=== PATIENT | male | born 1945 | race Caucasian/White ===

== ENCOUNTER 2018-09-01 09:45 | Inpatient (IN) ==
[2018-09-01] MEDS ORDERED: Metoprolol Inj 5 MG/5 ML Vial IV.PUSH ONE ×2 (10:14→12:17)
[2018-09-01] MEDS ORDERED: Pantoprazole Inj 40 MG Vial IV.PUSH ONE (10:14)
--- NOTE | 2018-09-01 10:20 | ED ---
HPI General Chief complaint: GI Bleed Stated complaint: Poss GI Bleed Time Seen by Provider: 09/01/18 10:05 Source: patient Mode of arrival: ambulatory Limitations: no limitations History of Present Illness HPI Narrative: The patient is a 73-year-old male who presents to the emergency department for melena. The patient states he has had dark, black colored stool for the last day and a half. The patient saw his primary physician, Dr. Bk Villasenor, who referred him to the emergency department. The patient does have a history of atrial fibrillation for which he takes Coumadin. The patient denies any previous history of GI bleeds including ulcers, gastritis, and polyps. The patient denies any current nausea, vomiting, or abdominal pain. He does complain of mild lightheadedness and does note his heart rate is elevated. The patient does have a history of atrial fibrillation and takes Coumadin, he is followed by his industrial engineering, Dr. Mckeon. The patient denies any chest pain or shortness of breath. Symptoms are moderate. There are no current alleviating factors. The patient symptoms possibly could be exacerbated by warfarin use. MD complaint: Reports melena Onset (ago): day(s) Pain Consistency: constant Severity: moderate Relieving factors: none Exacerbating factors: none Context: Reports anticoagulant use Associated symptoms: Reports other Treatments Prior to Arrival: Reports none Related Data Home Medications Medication Instructions Recorded Confirmed atorvastatin 20 mg PO QPM 09/01/18 09/01/18 carvedilol [Coreg] 25 mg PO BID 09/01/18 09/01/18 digoxin [Lanoxin] 0.125 mg PO DAILY 09/01/18 09/01/18 hydrochlorothiazide 12.5 mg PO QAM 09/01/18 09/01/18 levothyroxine 50 mcg PO DAILY 09/01/18 09/01/18 warfarin [Coumadin] 3 mg PO QNOON 09/01/18 09/01/18 Allergies Allergy/AdvReac Type Severity Reaction Status Date / Time No Known Allergies Allergy Uncoded 11/15/15 12:20 Review of Systems ROS: all other systems reviewed are negative [facility] Medical History Medical History Arrhythmia (Acute) Atrial fibrillation (Acute) Surgical History Surgical History Previous back surgery (Acute) Social History Social History Substance History: No History of Abuse Smoking Status: Unknown if ever smoked How Often Do You Have a Drink Containing Alcohol: 4 or more times a week Recent Travel in [facility] within the Last 8 Weeks: No Recent Out of Country Travel within the Last 8 Weeks: No Exam Narrative Exam Narrative: GENERAL: Awake, alert, pleasant 73-year-old male who appears his stated age and is in no acute respiratory distress. SKIN: Focused skin assessment warm/dry. HEAD: Atraumatic. Normocephalic. EYES: Pupils equal and round. No scleral icterus. No injection or drainage. ENT: No nasal bleeding or discharge. Mucous membranes pink and moist. NECK: Trachea midline. No JVD. CARDIOVASCULAR: Irregularly irregular, tachycardic with a heart rate in the 130s. RESPIRATORY: No accessory muscle use. Clear to auscultation. Breath sounds equal bilaterally. GASTROINTESTINAL: Abdomen soft, obese, no rebound tenderness. Rectal: No gross blood, black stool which is grossly guaiac positive. MUSCULOSKELETAL: No obvious deformities. No clubbing. No cyanosis. No edema. NEUROLOGICAL: Awake and alert. No obvious cranial nerve deficits. Motor grossly within normal limits. Normal speech. PSYCHIATRIC: Appropriate mood and affect; insight and judgment normal. Procedures Hemaprompt Stool Procedural Steps Taken: specimen placed in appropriate test area, developer placed on specimen and control areas and controls appropriately positive and negative Hemaprompt Stool Result: positive Course Initial Documented Vital Signs Temperature 98.4 F 09/01/18 09:55 Pulse Rate 125 H 09/01/18 09:55 Respiratory Rate 18 09/01/18 09:55 Blood Pressure 200/99 H 09/01/18 09:55 Pulse Oximetry 97 09/01/18 09:55 Last Documented Vital Signs Temperature 98.4 F 09/01/18 09:55 Pulse Rate 117 H 09/01/18 11:10 Respiratory Rate 18 09/01/18 11:10 Blood Pressure 164/95 H 09/01/18 11:10 Pulse Oximetry 98 09/01/18 11:10 Medical Decision Making [facility] Narrative Medical decision making narrative: IV was established, labs are drawn and sent, and the patient was placed on cardiac telemetry monitoring and continuous pulse oximetry monitoring. EKG was ordered and interpreted. Rectal exam was performed, black stool which is grossly guaiac positive. Type and screen and PT /INR were sent to lab. The patient was noted to be in atrial fibrillation with RVR, therefore, was administered Lopressor 5 mg intravenously. The patient's hemoglobin was normal, BUN was elevated greater than 40 with normal creatinine, most likely prerenal azotemia from upper GI bleed. INR was 2.0. The patient was administered Protonix intravenously and a second dose of Lopressor 5 mg for atrial fibrillation with RVR. The patient appears to have an upper GI bleed, on Coumadin, with lightheadedness and dizziness. Therefore, patient will be admitted for serial CBC, Protonix, and possible evaluation by GI. Patient may benefit from upper endoscopy. I discussed the patient with the on-call medical service who agrees with admission. Medical Screen Exam Complete: Yes Emergency Medical Condition: Yes Differential Diagnosis Differential Diagnosis: Differential diagnosis includes upper GI bleed, lower GI bleed, peptic ulcer disease, gastritis, coagulopathy, Coumadin toxicity, symptomatic anemia, atrial fibrillation with RVR, dysrhythmia, acute kidney injury, azotemia. Lab Data Result diagrams: 09/01/18 10:20 09/01/18 10:20 Lab Results 09/01/18 09/01/18 09/01/18 Range/Units 10:20 10:20 10:20 WBC 16.0 H (4.0-11.0) th/mm3 RBC 4.01 L (4.50-5.90) mil/mm3 Hgb 13.6 (13.0-17.0) gm/dL Hct 40.6 (39.0-51.0) % MCV 101.1 H (80.0-100.0) fL MCH 34.0 (27.0-34.0) pg MCHC 33.6 (32.0-36.0) % RDW 14.0 (11.6-17.2) % Plt Count 242 (150-450) th/mm3 MPV 7.3 (7.0-11.0) fL Prelim Diff (Auto) Slide review pending Neut % (Auto) 42.8 (16.0-70.0) % Lymph % (Auto) 43.7 (9.0-44.0) % [place] % (Auto) 10.4 H (0.0-8.0) % Eos % (Auto) 2.6 (0.0-4.0) % Baso % (Auto) 0.5 (0.0-2.0) % Neut # (Auto) 6.8 (1.8-7.7) th/mm3 Lymph # (Auto) 7.0 H (1.0-4.8) th/mm3 [place] # (Auto) 1.7 H (0.0-0.9) th/mm3 Eos # (Auto) 0.4 (0.0-0.4) th/mm3 Baso # (Auto) 0.1 (0.0-0.2) th/mm3 WBC Differential Manual diff final Seg Neuts % (Manual) 52 (16-70) % Lymphocytes % (Manual) 39 (9-44) % Monocytes % (Manual) 6 (0-8) % Eosinophils % (Manual) 3 (0-4) % Abs Neuts (Manual) 8.3 H (1.8-7.7) th/mm3 Differential Comment . Platelet Estimate Normal (Normal) Platelet Morphology Normal (Normal) PT 20.1 H (9.8-11.6) sec INR 2.0 Ratio APTT 33.3 H (23.4-31.7) sec Sodium 139 (136-145) meq/L Potassium 3.9 (3.5-5.1) meq/L Chloride 106 (98-107) meq/L Carbon Dioxide 23.2 (21.0-32.0) meq/L Anion Gap 10 (5-15) meq/L BUN 44 H (7-18) mg/dL Creatinine 1.23 (0.60-1.30) mg/dL Estimated GFR 58 L (>89) mL/min Random Glucose 147 H (74-106) mg/dL Calcium 8.9 (8.5-10.1) mg/dL Magnesium 1.9 (1.5-2.5) mg/dL Total Bilirubin 2.4 H (0.2-1.0) mg/dL AST 56 H (15-37) U/L ALT 45 (12-78) U/L Alkaline Phosphatase 149 H (45-117) U/L Total Protein 7.1 (6.4-8.2) g/dL Albumin 3.1 L (3.4-5.0) g/dL Digoxin 0.5 L (0.8-2.0) ng/mL Blood Type Blood Type Recheck Antibody Screen 09/01/18 Range/Units 10:20 WBC (4.0-11.0) th/mm3 RBC (4.50-5.90) mil/mm3 Hgb (13.0-17.0) gm/dL Hct (39.0-51.0) % MCV (80.0-100.0) fL MCH (27.0-34.0) pg MCHC (32.0-36.0) % RDW (11.6-17.2) % Plt Count (150-450) th/mm3 MPV (7.0-11.0) fL Prelim Diff (Auto) Neut % (Auto) (16.0-70.0) % Lymph % (Auto) (9.0-44.0) % [place] % (Auto) (0.0-8.0) % Eos % (Auto) (0.0-4.0) % Baso % (Auto) (0.0-2.0) % Neut # (Auto) (1.8-7.7) th/mm3 Lymph # (Auto) (1.0-4.8) th/mm3 [place] # (Auto) (0.0-0.9) th/mm3 Eos # (Auto) (0.0-0.4) th/mm3 Baso # (Auto) (0.0-0.2) th/mm3 WBC Differential Seg Neuts % (Manual) (16-70) % Lymphocytes % (Manual) (9-44) % Monocytes % (Manual) (0-8) % Eosinophils % (Manual) (0-4) % Abs Neuts (Manual) (1.8-7.7) th/mm3 Differential Comment Platelet Estimate (Normal) Platelet Morphology (Normal) PT (9.8-11.6) sec INR Ratio APTT (23.4-31.7) sec Sodium (136-145) meq/L Potassium (3.5-5.1) meq/L Chloride (98-107) meq/L Carbon Dioxide (21.0-32.0) meq/L Anion Gap (5-15) meq/L BUN (7-18) mg/dL Creatinine (0.60-1.30) mg/dL Estimated GFR (>89) mL/min Random Glucose (74-106) mg/dL Calcium (8.5-10.1) mg/dL Magnesium (1.5-2.5) mg/dL Total Bilirubin (0.2-1.0) mg/dL AST (15-37) U/L ALT (12-78) U/L Alkaline Phosphatase (45-117) U/L Total Protein (6.4-8.2) g/dL Albumin (3.4-5.0) g/dL Digoxin (0.8-2.0) ng/mL Blood Type O Positive Blood Type Recheck Required Antibody Screen Negative ECG Data EKG Prior to Arrival: No Attestation: I personally reviewed and interpreted this ECG as follows: Interpretation: EKG reveals atrial fibrillation with RVR, rate 114. Nonspecific ST-T wave changes. Discharge Plan Discharge Disposition Patient Disposition: ED Admit(ED Internal Use Only) Discharge Condition Condition: Stable Discharge Order Discharge Orders: ED Use Only Admit Order (Routine); Ordered 09/01/18 Ordered By: Jostin Graham Discharge Details Diagnosis: Upper gastrointestinal hemorrhage, Atrial fibrillation with RVR, Coagulopathy Physicians Team ED Provider: Jostin Graham Primary Care Provider: Bk Villasenor Rxs /Orders / Referrals /Forms Prescriptions: No Action carvedilol [Coreg] 25 mg Tablet 25 mg PO BID RF: 0 atorvastatin 20 mg Tablet 20 mg PO QPM RF: 0 warfarin [Coumadin] 3 mg Tablet 3 mg PO QNOON RF: 0 levothyroxine 50 mcg Tablet 50 mcg PO DAILY RF: 0 digoxin [Lanoxin] 125 mcg Tablet 0.125 mg PO DAILY RF: 0 hydrochlorothiazide 12.5 mg Tablet 12.5 mg PO QAM RF: 0 Discharge Interventions Interventions: Vital Signs Last Done: 09/01/18 11:10 Status ED Status: Admitted Patient
[2018-09-01] MEDS: Sod Chloride 0.9% Inj 1,000 ML IV.CONT SCH ×3 (10:30→18:52)
[2018-09-01 11:08] LABS: Baso # (Auto) 0.1 th/mm3 (0.0-0.2); Baso % (Auto) 0.5 % (0.0-2.0); Eos # (Auto) 0.4 th/mm3 (0.0-0.4); Eos % (Auto) 2.6 % (0.0-4.0); Hematocrit 40.6 % (39.0-51.0); Hemoglobin 13.6 gm/dL (13.0-17.0); Lymph % (Auto) 43.7 % (9.0-44.0); Mean Corpuscular HGB Conc 33.6 % (32.0-36.0); Mean Corpuscular Volume 101.1 fL (80.0-100.0); Mean Platelet Volume 7.3 fL (7.0-11.0); Mono # (Auto) 1.7 th/mm3 (0.0-0.9); Mono % (Auto) 10.4 % (0.0-8.0); Neut # (Auto) 6.8 th/mm3 (1.8-7.7); Neut % (Auto) 42.8 % (16.0-70.0); Platelet Count 242 th/mm3 (150-450); Red Blood Count 4.01 mil/mm3 (4.50-5.90)
[2018-09-01 11:17] LABS: Activated Partial Thrombo Time 33.3 sec (23.4-31.7); Prothrombin Time 20.1 sec (9.8-11.6)
[2018-09-01 11:27] LABS: Alanine Aminotransferase 45 U/L (12-78)
[2018-09-01 11:40] LABS: Eosinophils 3 % (0-4); Lymphocytes 39 % (9-44); Monocytes 6 % (0-8); Platelet Estimate Normal (Normal); Platelet Morphology Normal (Normal)
[2018-09-01 11:41] LABS: Alkaline Phosphatase 149 U/L (45-117); Digoxin 0.5 ng/mL (0.8-2.0); Total Protein 7.1 g/dL (6.4-8.2)
[2018-09-01 11:44] LABS: Albumin 3.1 g/dL (3.4-5.0); Anion Gap 10 meq/L (5-15); Aspartate Aminotransferase 56 U/L (15-37); Blood Urea Nitrogen 44 mg/dL (7-18); Calcium 8.9 mg/dL (8.5-10.1); Carbon Dioxide 23.2 meq/L (21.0-32.0); Chloride 106 meq/L (98-107); Glomerular Filtration Rate 58 mL/min (>89); Glucose,Random 147 mg/dL (74-106); Magnesium 1.9 mg/dL (1.5-2.5); Potassium 3.9 meq/L (3.5-5.1); Sodium 139 meq/L (136-145)
--- NOTE | 2018-09-01 13:23 | P.HPIM ---
History of Present Illness Primary Care Physician: Bk Villasenor DO History of Present Illness: This patient is a 73-year-old male with a diagnosis of hypertension, atrial fibrillation on Coumadin, history of gastric bypass surgery as per the patient. The patient was seen by his primary care doctor a few days ago and was found to have an elevated INR of 5.4 this past . He was told to skip 2 days of Coumadin however over the weekend the patient began to have black stools. He said his stools have continued over the past 3 days and this is why he came into the emergency department today. The patient denies any abdominal pain, no fevers or chills, no vomiting. He does not have any other complaints today. Past medical history hypertension, atrial fibrillation on Coumadin Past surgical history patient says he got a piece of metal removed from his left side of his leg, gastric bypass. Family history none as per the patient Social history the patient denies any history of tobacco smoking, he says he drinks approximately 2 drinks of vodka per day that has been ongoing for nearly 20 years. Denies any history of substance abuse. Inpatient Certification: I certify that the inpatient services were ordered in accordance with Medicare regulations governing the order. This includes certification that hospital inpatient services are reasonable and necessary and in the case of services not specified as inpatient-only under 42 CFR 419.22(n), that they are appropriately provided as inpatient services in accordance to with the 2-midnight benchmark under 43 CFR 412.3(e) Estimated Total Length of Stay (Days): 3 Plans for Post Hospital Care: Home Review of Systems All other systems reviewed negative except as stated in HPI [facility] - History History Provided By: Patient - Medical History Medical History: Medical History (Last Updated 09/01/18 @ 10:22 by Abigail Syed) Arrhythmia Atrial fibrillation - Surgical History Surgical History: Surgical History (Last Updated 09/01/18 @ 10:22 by Abigail Syed) Previous back surgery - Tobacco History Smoking Status: Unknown if ever smoked - Alcohol History How Often Do You Have a Drink Containing Alcohol: 4 or more times a week - Substance Use History Substance History: No History of Abuse - Travel History Recent Travel in the [place] Within the Last 8 Weeks: No Recent Travel Out of the Country Within the Last 8 Weeks: No - Immunization History Tetanus Immunization: Unsure Medications and Allergies Active Medications: Active Medications Carvedilol (Coreg) 12.5 mg PO BID [facility] Digoxin (Lanoxin) 125 mcg PO DAILY DIANA Sodium Chloride (Ns Inj) 1,000 mls @ 125 mls/hr IV.CONT .Q8H DIANA Last Admin: 09/01/18 10:30 Dose: 125 mls/hr Sodium Chloride (Ns Inj) 1,000 mls @ 100 mls/hr IV.CONT .Q10H DIANA Levothyroxine Sodium (Synthroid) 50 mcg PO DAILY@0600 [facility] Ondansetron HCl (Zofran Inj) 4 mg IV.PUSH Q6H PRN PRN Reason: NAUSEA OR VOMITING Pantoprazole Sodium (Protonix Inj) 40 mg IV.PUSH BID DIANA Sodium Chloride (Ns Flush) 2 ml IV.FLUSH PRN PRN PRN Reason: FLUSH AFTER USING IV ACCESS Sodium Chloride (Ns Flush) 2 ml IV.FLUSH BID DIANA Sodium Chloride (Ns Flush) 2 ml IV.FLUSH PRN PRN PRN Reason: FLUSH AFTER USING IV ACCESS Allergies Allergy/AdvReac Type Severity Reaction Status Date / Time No Known Allergies Allergy Uncoded 11/15/15 12:20 Home Medications Medication Instructions Recorded Confirmed Type atorvastatin 20 mg PO QPM 09/01/18 09/01/18 History carvedilol [Coreg] 25 mg PO BID 09/01/18 09/01/18 History digoxin [Lanoxin] 0.125 mg PO DAILY 09/01/18 09/01/18 History hydrochlorothiazide 12.5 mg PO QAM 09/01/18 09/01/18 History levothyroxine 50 mcg PO DAILY 09/01/18 09/01/18 History warfarin [Coumadin] 3 mg PO QNOON 09/01/18 09/01/18 History Exam Vital signs: Vital Signs 09/01/18 09:55 09/01/18 09:59 09/01/18 10:22 Temperature 98.4 F Pulse Rate 125 H 160 H Respiratory Rate 18 18 Blood Pressure 200/99 H Pulse Oximetry 97 99 98 09/01/18 11:10 Temperature Pulse Rate 117 H Respiratory Rate 18 Blood Pressure 164/95 H Pulse Oximetry 98 Intake & Output 08/31/18 09/01/18 09/01/18 18:59 06:59 18:59 Weight 129.274 kg Narrative: General patient in no acute distress HEENT extraocular movements are intact, atraumatic, normocephalic Cardiovascular S1-S2 audible, irregularly irregular rhythm, Respiratory clear to auscultation bilaterally Abdomen soft, nontender, nondistended, normal bowel sounds Extremities no edema 2+ distal pulses in bilateral upper and lower extremities Neuro no focal neurological deficits. Results - Labs CBC & Chem 7: 09/01/18 10:20 09/01/18 10:20 Labs: Short CBC 09/01/18 Range/Units 10:20 WBC 16.0 H (4.0-11.0) th/mm3 Hgb 13.6 (13.0-17.0) gm/dL Hct 40.6 (39.0-51.0) % Plt Count 242 (150-450) th/mm3 BMP 09/01/18 10:20 Sodium 139 Potassium 3.9 Chloride 106 Carbon Dioxide 23.2 BUN 44 H Creatinine 1.23 Calcium 8.9 Liver Function 09/01/18 Range/Units 10:20 Total Bilirubin 2.4 H (0.2-1.0) mg/dL AST 56 H (15-37) U/L ALT 45 (12-78) U/L Alkaline Phosphatase 149 H (45-117) U/L Albumin 3.1 L (3.4-5.0) g/dL Caprini VTE Risk Assessment Caprini VTE Risk Assessment: Moderate/High Risk (score >= 2) (Patient currently with GI bleed) Caprini Risk Assessment Model: Point Value = 1 Point Value = 2 Point Value = 3 Point Value = 5 Age 41-60 Minor surgery BMI > 25 kg/m2 Swollen legs Varicose veins or History of unexplained or recurrent spontaneous Oral contraceptives or hormone replacement Sepsis (< 1 month) Serious lung disease, including pneumonia (< 1 month) Abnormal pulmonary function Acute myocardial infarction Congestive heart failure (< 1 month) History of inflammatory bowel disease Medical patient at bed rest Age 61-74 Arthroscopic surgery Major open surgery (> 45 min) Laparoscopic surgery (> 45 min) Malignancy Confined to bed (> 72 hours) Immobilizing plaster cast Central venous access Age >= 75 History of VTE Family history of VTE Factor V Leiden Prothrombin 12062I Lupus anticoagulant Anticardiolipin antibodies Elevated serum homocysteine Heparin-induced thrombocytopenia Other congenital or acquired thrombophilia Stroke (< 1 month) Elective arthroplasty Hip, pelvis, or leg fracture Acute spinal cord injury (< 1 month) Prophylaxis Regimen: Total Risk Factor Score Risk Level Prophylaxis Regimen 0-1 Low Early ambulation 2 Moderate Order ONE of the following: *Sequential Compression Device (SCD) *Heparin 5000 units SQ BID 3-4 Higher Order ONE of the following medications: *Heparin 5000 units SQ TID *Enoxaparin/Lovenox 40 mg SQ daily (WT < 150 kg, CrCl > 30 mL/min) *Enoxaparin/Lovenox 30 mg SQ daily (WT < 150 kg, CrCl > 10-29 mL/min) *Enoxaparin/Lovenox 30 mg SQ BID (WT < 150 kg, CrCl > 30 mL/min) AND/OR *Sequential Compression Device (SCD) 5 or more Highest Order ONE of the following medications: *Heparin 5000 units SQ TID (Preferred with Epidurals) *Enoxaparin/Lovenox 40 mg SQ daily (WT < 150 kg, CrCl > 30 mL/min) *Enoxaparin/Lovenox 30 mg SQ daily (WT < 150 kg, CrCl > 10-29 mL/min) *Enoxaparin/Lovenox 30 mg SQ BID (WT < 150 kg, CrCl > 30 mL/min) AND *Sequential Compression Device (SCD) Assessment and Plan - Plan This patient is a 73-year-old male with a diagnosis of hypertension, atrial fibrillation on Coumadin, history of gastric bypass surgery as per the patient. The patient was seen by his primary care doctor a few days ago and was found to have an elevated INR of 5.4 this past . He was told to skip 2 days of Coumadin however over the weekend the patient began to have black stools. He said his stools have continued over the past 3 days and this is why he came into the emergency department today. The patient denies any abdominal pain, no fevers or chills, no vomiting. He does not have any other complaints today. 1. GI bleed likely upper Patient presents with symptoms mentioned above. Hemoglobin is around 13. INR is 2.0. Coumadin has been held over the past couple of days. Follow-up a.m. INR. GI consulted, patient will likely get EGD tomorrow. As per the patient he had a colonoscopy done 1 year ago which showed 2 polyps which were removed. No other significant findings noted on colonoscopy as per the patient. The patient will be started on Protonix IV twice daily. We will follow up with GIs recommendation. If the patient undergoes EGD today we will reverse the patient's INR today. He will likely continue to downtrend if EGD is done tomorrow. I am not sure if the patient has a history of cirrhosis but given his extensive alcohol history will be started on octreotide and Rocephin. No significant amount of ascites noted on physical exam. 2. Hypertension Patient is known hypertensive with a systolic blood pressure in the 150s. He says he did not take his Coreg as morning. Coreg will be given to the patient. He was also just given an IV push of Lopressor. We will continue to monitor the patient and adjust blood pressure medications if needed. No pharmacotherapy for DVT prophylaxis the patient currently has a GI bleed. SCDs.
[2018-09-01] MEDS: Carvedilol 12.5 MG Tablet PO SCH ×2 (14:09→21:07)
[2018-09-01] MEDS: Pantoprazole Inj 40 MG Vial IV.PUSH SCH ×2 (14:35→21:08)
[2018-09-01 14:47] LABS: Hematocrit 34.4 % (39.0-51.0); Hemoglobin 12.2 gm/dL (13.0-17.0)
[2018-09-01] MEDS ORDERED: Octreotide Inj 50 MCG/ML Vial IV.PUSH ONE (15:00)
--- NOTE | 2018-09-01 16:41 | P.CONGI ---
History of Present Illness Consult date: 09/01/18 Consult reason: Upper GI bleed with black stools Chief complaint: Upper GI Bleed, melena, atrial fibrillation w/ RVR History of Present Illness: This patient is a 73-year-old male with past medical history significant for hypertension, alcoholic hepatitis, atrial fibrillation on Coumadin, LAP-BAND gastric surgery in 2017. Patient presented to [facility] with report of black stools. Patient denies abdominal pain nausea vomiting. Denies any noted diarrhea or constipation. Of note, patient states that he has not taken Coumadin for 2 days. Social history includes patient drinks 2 drinks of vodka per day for the last 20 years. Denies any use of tobacco or illicit drugs. Our service has been consulted to evaluate patient for upper GI bleeding with black tarry stools. <Pamela Webb - Last Filed: 09/01/18 16:32> Review of Systems All other systems reviewed negative except as stated in HPI <Pamela Webb - Last Filed: 09/01/18 16:32> PMFSH - History History Provided By: Patient - Medical History Medical History: Medical History (Last Updated 09/01/18 @ 10:22 by Abigail Syed) Arrhythmia Atrial fibrillation - Surgical History Surgical History: Surgical History (Last Updated 09/01/18 @ 10:22 by Abigail Syed) Previous back surgery - Tobacco History Smoking Status: Unknown if ever smoked - Alcohol History How Often Do You Have a Drink Containing Alcohol: 4 or more times a week - Substance Use History Substance History: No History of Abuse - Travel History Recent Travel in the [place] Within the Last 8 Weeks: No Recent Travel Out of the Country Within the Last 8 Weeks: No - Immunization History Tetanus Immunization: Unsure <Pamela Webb - Last Filed: 09/01/18 16:32> - Medical History Medical History: Medical History (Last Updated 09/01/18 @ 10:22 by Abigail Syed) Arrhythmia Atrial fibrillation - Surgical History Surgical History: Surgical History (Last Updated 09/01/18 @ 10:22 by Abigail Syed) Previous back surgery <Reginaldo Duran - Last Filed: 09/02/18 09:01> Medications and Allergies Active Medications: Active Medications Carvedilol (Coreg) 25 mg PO BID DIANA Last Admin: 09/01/18 14:09 Dose: 25 mg Digoxin (Lanoxin) 125 mcg PO DAILY DIANA Sodium Chloride (Ns Inj) 1,000 mls @ 125 mls/hr IV.CONT .Q8H [facility]IA[facility] Last Infusion: 09/01/18 15:06 Dose: Infused Sodium Chloride (Ns Inj) 1,000 mls @ 100 mls/hr IV.CONT .Q10H [facility] Last Admin: 09/01/18 14:08 Dose: 100 mls/hr Ceftriaxone Sodium 1,000 mg/ (Sodium Chloride) 100 mls @ 200 mls/hr IV.SIG Q24H [facility] Last Infusion: 09/01/18 16:07 Dose: Infused Levothyroxine Sodium (Synthroid) 50 mcg PO DAILY@0600 [facility] Ondansetron HCl (Zofran Inj) 4 mg IV.PUSH Q6H PRN PRN Reason: NAUSEA OR VOMITING Pantoprazole Sodium (Protonix Inj) 40 mg IV.PUSH BID [facility] Last Admin: 09/01/18 14:35 Dose: Not Given Sodium Chloride (Ns Flush) 2 ml IV.FLUSH PRN PRN PRN Reason: FLUSH AFTER USING IV ACCESS Sodium Chloride (Ns Flush) 2 ml IV.FLUSH BID DIANA Sodium Chloride (Ns Flush) 2 ml IV.FLUSH PRN PRN PRN Reason: FLUSH AFTER USING IV ACCESS <Pamela Webb - Last Filed: 09/01/18 16:32> Active Medications: Active Medications Carvedilol (Coreg) 25 mg PO BID [facility] Last Admin: 09/01/18 21:07 Dose: 25 mg Digoxin (Lanoxin) 125 mcg PO DAILY [facility] Sodium Chloride (Ns Inj) 1,000 mls @ 125 mls/hr IV.CONT .Q8H [facility] Last Admin: 09/02/18 03:43 Dose: Not Given Sodium Chloride (Ns Inj) 1,000 mls @ 100 mls/hr IV.CONT .Q10H [facility] Last Admin: 09/02/18 03:43 Dose: 100 mls/hr Ceftriaxone Sodium 1,000 mg/ (Sodium Chloride) 100 mls @ 200 mls/hr IV.SIG Q24H [facility] Last Infusion: 09/01/18 16:07 Dose: Infused Levothyroxine Sodium (Synthroid) 50 mcg PO DAILY@0600 [facility] Last Admin: 09/02/18 06:00 Dose: 50 mcg Ondansetron HCl (Zofran Inj) 4 mg IV.PUSH Q6H PRN PRN Reason: NAUSEA OR VOMITING Pantoprazole Sodium (Protonix Inj) 40 mg IV.PUSH BID [facility] Last Admin: 09/01/18 21:08 Dose: 40 mg Sodium Chloride (Ns Flush) 2 ml IV.FLUSH PRN PRN PRN Reason: FLUSH AFTER USING IV ACCESS Sodium Chloride (Ns Flush) 2 ml IV.FLUSH BID [facility] Last Admin: 09/01/18 21:42 Dose: 2 ml Sodium Chloride (Ns Flush) 2 ml IV.FLUSH PRN PRN PRN Reason: FLUSH AFTER USING IV ACCESS <Reginaldo Duran - Last Filed: 09/02/18 09:01> Allergies Allergy/AdvReac Type Severity Reaction Status Date / Time No Known Allergies Allergy Uncoded 11/15/15 12:20 Home Medications Medication Instructions Recorded Confirmed Type atorvastatin 20 mg PO QPM 09/01/18 09/01/18 History carvedilol [Coreg] 25 mg PO BID 09/01/18 09/01/18 History digoxin [Lanoxin] 0.125 mg PO DAILY 09/01/18 09/01/18 History hydrochlorothiazide 12.5 mg PO QAM 09/01/18 09/01/18 History levothyroxine 50 mcg PO DAILY 09/01/18 09/01/18 History warfarin [Coumadin] 3 mg PO QNOON 09/01/18 09/01/18 History Exam Vital signs: Vital Signs 09/01/18 09:55 09/01/18 09:59 09/01/18 10:22 Temperature 98.4 F Pulse Rate 125 H 160 H Respiratory Rate 18 18 Blood Pressure 200/99 H Pulse Oximetry 97 99 98 09/01/18 11:10 Temperature Pulse Rate 117 H Respiratory Rate 18 Blood Pressure 164/95 H Pulse Oximetry 98 Intake & Output 08/31/18 09/01/18 09/01/18 18:59 06:59 18:59 Intake Total 1100 / 1100 Balance 1100 / 1100 Weight 129.274 kg Intake: IV 1100 / 1100 NS Inj 1,000 ML @ 125 mls/hr IV 1000 / 1000 .CONT .Q8H [facility] Rx#:[id number] Rocephin Inj 1,000 MG In NS Inj 100 / 100 100 ML @ 200 mls/hr IV.SIG Q24H [facility] Rx#:[id number] - Constitutional no acute distress, obese - Routine HEENT Exam Head: Present: normocephalic ENT: Present: mucous membranes moist - Routine Respiratory Exam Present: CTA bilaterally. Absent: accessory muscle use - Routine Abdominal Exam Present: soft, normoactive bowel sounds. Absent: tenderness, distended, guarding, firm - Routine Skin Exam Present: dry, warm - Routine Neurological Exam Present: alert <Webb,Pamela - Last Filed: 09/01/18 16:32> Vital signs: Vital Signs 09/01/18 09:55 09/01/18 09:59 09/01/18 10:22 Temperature 98.4 F Pulse Rate 125 H 160 H Respiratory Rate 18 18 Blood Pressure 200/99 H Pulse Oximetry 97 99 98 09/01/18 11:10 09/01/18 13:00 09/01/18 17:34 Temperature Pulse Rate 117 H 68 82 Respiratory Rate 18 20 18 Blood Pressure 164/95 H 168/70 H 147/90 H Pulse Oximetry 98 97 09/01/18 17:38 09/01/18 20:00 09/02/18 00:00 Temperature 98.2 F 98.9 F 98.0 F Pulse Rate 105 H 114 H 100 H Respiratory Rate 16 19 18 Blood Pressure 135/81 180/81 H 129/73 Pulse Oximetry 96 95 98 09/02/18 03:55 09/02/18 07:48 Temperature 98.1 F 97.6 F Pulse Rate 106 H 100 H Respiratory Rate 18 16 Blood Pressure 138/97 H 163/98 H Pulse Oximetry 98 98 Intake & Output 09/01/18 09/02/18 09/02/18 18:59 06:59 18:59 Intake Total 2099 1000 / 1000 Output Total 250 / 250 Balance 1850 / 1850 1000 / 1000 Weight 128.82 kg Intake: IV 2099 1000 / 1000 NS Inj 1,000 ML @ 100 mls/hr IV 1999 / 1999 1000 / 1000 .CONT .Q10H [facility] Rx#:[id number] Rocephin Inj 1,000 MG In NS Inj 100 / 100 100 ML @ 200 mls/hr IV.SIG Q24H [facility] Rx#:[id number] Output: Urine 250 / 250 Other: # Voids 3 Date of Last Bowel Movement 09/01/18 08/31/18 Weight On Admission 128.82 kg <Reginaldo Duran - Last Filed: 09/02/18 09:01> Results - Labs CBC & Chem 7: 09/01/18 13:58 09/01/18 10:20 Labs: Laboratory Results - last 24 hr 09/01/18 09/01/18 09/01/18 10:20 10:20 10:20 WBC 16.0 H RBC 4.01 L Hgb 13.6 Hct 40.6 MCV 101.1 H MCH 34.0 MCHC 33.6 RDW 14.0 Plt Count 242 MPV 7.3 Prelim Diff (Auto) Slide review pending Neut % (Auto) 42.8 Lymph % (Auto) 43.7 [place] % (Auto) 10.4 H Eos % (Auto) 2.6 Baso % (Auto) 0.5 Neut # (Auto) 6.8 Lymph # (Auto) 7.0 H [place] # (Auto) 1.7 H Eos # (Auto) 0.4 Baso # (Auto) 0.1 WBC Differential Manual diff final Seg Neuts % (Manual) 52 Lymphocytes % (Manual) 39 Monocytes % (Manual) 6 Eosinophils % (Manual) 3 Abs Neuts (Manual) 8.3 H Differential Comment . Platelet Estimate Normal Platelet Morphology Normal PT 20.1 H INR 2.0 APTT 33.3 H Sodium 139 Potassium 3.9 Chloride 106 Carbon Dioxide 23.2 Anion Gap 10 BUN 44 H Creatinine 1.23 Estimated GFR 58 L Random Glucose 147 H Calcium 8.9 Magnesium 1.9 Total Bilirubin 2.4 H AST 56 H ALT 45 Alkaline Phosphatase 149 H Total Protein 7.1 Albumin 3.1 L Digoxin 0.5 L Blood Type Blood Type Recheck Antibody Screen 09/01/18 09/01/18 10:20 13:58 WBC RBC Hgb 12.2 L Hct 34.4 L MCV MCH MCHC RDW Plt Count MPV Prelim Diff (Auto) Neut % (Auto) Lymph % (Auto) [place] % (Auto) Eos % (Auto) Baso % (Auto) Neut # (Auto) Lymph # (Auto) [place] # (Auto) Eos # (Auto) Baso # (Auto) WBC Differential Seg Neuts % (Manual) Lymphocytes % (Manual) Monocytes % (Manual) Eosinophils % (Manual) Abs Neuts (Manual) Differential Comment Platelet Estimate Platelet Morphology PT INR APTT Sodium Potassium Chloride Carbon Dioxide Anion Gap BUN Creatinine Estimated GFR Random Glucose Calcium Magnesium Total Bilirubin AST ALT Alkaline Phosphatase Total Protein Albumin Digoxin Blood Type O Positive Blood Type Recheck Required Antibody Screen Negative <WebbPamela - Last Filed: 09/01/18 16:32> - Labs CBC & Chem 7: 09/02/18 05:14 09/02/18 05:14 Labs: Laboratory Results - last 24 hr 09/01/18 09/01/18 09/01/18 10:20 10:20 10:20 WBC 16.0 H RBC 4.01 L Hgb 13.6 Hct 40.6 MCV 101.1 H MCH 34.0 MCHC 33.6 RDW 14.0 Plt Count 242 MPV 7.3 Prelim Diff (Auto) Slide review pending Neut % (Auto) 42.8 Lymph % (Auto) 43.7 [place] % (Auto) 10.4 H Eos % (Auto) 2.6 Baso % (Auto) 0.5 Neut # (Auto) 6.8 Lymph # (Auto) 7.0 H [place] # (Auto) 1.7 H Eos # (Auto) 0.4 Baso # (Auto) 0.1 WBC Differential Manual diff final Seg Neuts % (Manual) 52 Lymphocytes % (Manual) 39 Monocytes % (Manual) 6 Eosinophils % (Manual) 3 Abs Neuts (Manual) 8.3 H Differential Comment . Platelet Estimate Normal Platelet Morphology Normal PT 20.1 H INR 2.0 APTT 33.3 H Sodium 139 Potassium 3.9 Chloride 106 Carbon Dioxide 23.2 Anion Gap 10 BUN 44 H Creatinine 1.23 Estimated GFR 58 L POC Glucose Random Glucose 147 H Calcium 8.9 Magnesium 1.9 Total Bilirubin 2.4 H AST 56 H ALT 45 Alkaline Phosphatase 149 H Total Protein 7.1 Albumin 3.1 L Digoxin 0.5 L Blood Type Blood Type Recheck Antibody Screen 09/01/18 09/01/18 09/01/18 10:20 13:58 21:28 WBC RBC Hgb 12.2 L 12.3 L Hct 34.4 L 35.5 L MCV MCH MCHC RDW Plt Count MPV Prelim Diff (Auto) Neut % (Auto) Lymph % (Auto) [place] % (Auto) Eos % (Auto) Baso % (Auto) Neut # (Auto) Lymph # (Auto) [place] # (Auto) Eos # (Auto) Baso # (Auto) WBC Differential Seg Neuts % (Manual) Lymphocytes % (Manual) Monocytes % (Manual) Eosinophils % (Manual) Abs Neuts (Manual) Differential Comment Platelet Estimate Platelet Morphology PT INR APTT Sodium Potassium Chloride Carbon Dioxide Anion Gap BUN Creatinine Estimated GFR POC Glucose Random Glucose Calcium Magnesium Total Bilirubin AST ALT Alkaline Phosphatase Total Protein Albumin Digoxin Blood Type O Positive Blood Type Recheck Required Antibody Screen Negative 09/02/18 09/02/18 09/02/18 01:29 05:14 05:14 WBC RBC Hgb 10.9 L Hct 31.8 L MCV MCH MCHC RDW Plt Count MPV Prelim Diff (Auto) Neut % (Auto) Lymph % (Auto) [place] % (Auto) Eos % (Auto) Baso % (Auto) Neut # (Auto) Lymph # (Auto) [place] # (Auto) Eos # (Auto) Baso # (Auto) WBC Differential Seg Neuts % (Manual) Lymphocytes % (Manual) Monocytes % (Manual) Eosinophils % (Manual) Abs Neuts (Manual) Differential Comment Platelet Estimate Platelet Morphology PT INR APTT Sodium 147 H Potassium 3.8 Chloride 114 H D Carbon Dioxide 27.9 Anion Gap 5 BUN 28 H Creatinine 1.04 Estimated GFR 70 L POC Glucose 144 H Random Glucose 117 H Calcium 8.2 L Magnesium 1.8 Total Bilirubin AST ALT Alkaline Phosphatase Total Protein Albumin Digoxin Blood Type Blood Type Recheck Antibody Screen 09/02/18 09/02/18 09/02/18 05:14 05:58 07:09 WBC RBC Hgb Hct MCV MCH MCHC RDW Plt Count MPV Prelim Diff (Auto) Neut % (Auto) Lymph % (Auto) [place] % (Auto) Eos % (Auto) Baso % (Auto) Neut # (Auto) Lymph # (Auto) [place] # (Auto) Eos # (Auto) Baso # (Auto) WBC Differential Seg Neuts % (Manual) Lymphocytes % (Manual) Monocytes % (Manual) Eosinophils % (Manual) Abs Neuts (Manual) Differential Comment Platelet Estimate Platelet Morphology PT 18.9 H INR 1.9 APTT Sodium Potassium Chloride Carbon Dioxide Anion Gap BUN Creatinine Estimated GFR POC Glucose 120 H 115 H Random Glucose Calcium Magnesium Total Bilirubin AST ALT Alkaline Phosphatase Total Protein Albumin Digoxin Blood Type Blood Type Recheck Antibody Screen <Reginaldo Duran - Last Filed: 09/02/18 09:01> Assessment and Plan (1) Upper gastrointestinal hemorrhage Status: Acute Code(s): K92.2 - Gastrointestinal hemorrhage, unspecified (2) Coagulopathy Status: Acute Code(s): D68.9 - Coagulation defect, unspecified - Plan This patient is a 73-year-old male with past medical history significant for hypertension, alcoholic hepatitis, atrial fibrillation on Coumadin, LAP-BAND gastric surgery in 2017. Patient presented to [facility] with report of black stools. Patient denies abdominal pain nausea vomiting. Denies any noted diarrhea or constipation. Of note, patient states that he has not taken Coumadin for 2 days. Social history includes patient drinks 2 drinks of vodka per day for the last 20 years. Denies any use of tobacco or illicit drugs. Our service has been consulted to evaluate patient for upper GI bleeding with black tarry stools. Upper GI bleed History of alcoholic hepatitis, atrial fibrillation on Coumadin and lap band gastric surgery in 2017. Report of black stools for 3 days. Hemoglobin 12.2 hematocrit 34.4 platelet count 242 INR 2.0 total bilirubin 2.4 AST 56 ALT 45 alk phos 149 albumin 3.1 Plan -Clear liquid diet -N.p.o. after midnight -Obtain consent for EGD -Avoid anticoagulants and NSAIDs -Monitor for bleeding -Monitor hemoglobin and hematocrit -Pantoprazole 40 mg IV twice daily -Supportive care -Further recommendations to follow This patient has been seen by myself and and this note is written on his behalf - Attending Attestation Dr. Duran <Pamela Webb - Last Filed: 09/01/18 16:32> (1) Upper gastrointestinal hemorrhage Status: Acute Code(s): K92.2 - Gastrointestinal hemorrhage, unspecified (2) Coagulopathy Status: Acute Code(s): D68.9 - Coagulation defect, unspecified - Attending Attestation The patient was seen and examined. Agree with above. <Reginaldo Duran - Last Filed: 09/02/18 09:01>
[2018-09-01] MEDS ORDERED: Carvedilol 12.5 MG Tablet PO SCH (21:00)
[2018-09-01 21:52] LABS: Hematocrit 35.5 % (39.0-51.0); Hemoglobin 12.3 gm/dL (13.0-17.0)
[2018-09-02] MEDS: Sod Chloride 0.9% Inj 1,000 ML IV.CONT SCH ×5 (03:38→10:07)
[2018-09-02 05:59] LABS: Hematocrit 31.8 % (39.0-51.0); Hemoglobin 10.9 gm/dL (13.0-17.0)
[2018-09-02] MEDS ORDERED: Levothyroxine 50 MCG Tablet PO SCH (06:00)
[2018-09-02 06:04] LABS: INR 1.9 Ratio; Prothrombin Time 18.9 sec (9.8-11.6)
[2018-09-02 06:42] LABS: Calcium 8.2 mg/dL (8.5-10.1); Carbon Dioxide 27.9 meq/L (21.0-32.0); Magnesium 1.8 mg/dL (1.5-2.5); Potassium 3.8 meq/L (3.5-5.1)
[2018-09-02] MEDS ORDERED: Digoxin 125 MCG Tablet PO SCH (09:00)
--- NOTE | 2018-09-02 10:35 | P.PCN ---
Date of procedure: 09/02/18 Pre-op diagnosis: Melena and anemia Post-op diagnosis: other (Gastritis with gastric ulcer, white based) Procedure: Indication; Melena and anemia Procedure Performed; upper endoscopy with biopsy After informing the patient about procedure and possible complications consent was signed. history and physical were updated. Patient was taken to the procedure room and placed in position. Time out was completed. Adequate sedation was performed by anesthesia provider. Upper Endoscopy, the scope was placed in the mouth advanced under video guide to the second portion of the duodenum, then the scope was withdrawal to the stomach and retro-flexion was performed, the scope was withdrawal to the esophagus then out of the mouth without any immediate complication Findings; Esophagus: Z line seen at 40 cm. Normal esophageal mucosa throughout Stomach: Direct and retroflex views obtained. In the distal body several small white based ulcers were seen with surrounding edema/erythema. in the prepyloric area and edematous engorged erythematous area was seen with a central 3 mm white based ulcer without stigmata of recent bleeding seen. Biopsy of the area was obtained. Retroflex in the stomach revealed fullness in the cardia consistent with his history of a lap band being in place that has moved proximally. Duodenum: Small areas of erythema were seen consistent with a mild duodenitis in the bulb. No ulcers or erosions were seen. The second portion was normal. Recommendations; 1- Supportive care 2- ok to transfer to recovery area then discharge per protocol 3- Return to ER holding area. [id number] diet 5- EGD to be repeated as needed for rebleeding. 6- Avoid NSAIDS and anticoagulation as possible. 7- Standard dose oral proton pump inhibitor 8- clear for discharge home from gastroenterology point of view. 9- Follow up in our office in 4-6 weeks to consider repeat upper endoscopy to follow up gastric ulcers. Anesthesia: MAC Surgeon: Reginaldo Duran Pathology: other (Gastric antrum, ulcer) Condition: stable Disposition: no change (Can be discharged on proton pump inhibitor standard dose.)
[2018-09-02 11:20] VITALS: RESP 16
[2018-09-02] MEDS: Carvedilol 12.5 MG Tablet PO SCH (11:55)
[2018-09-02] MEDS: Pantoprazole Inj 40 MG Vial IV.PUSH SCH (11:55)
[2018-09-02 15:21] VITALS: BP 146/73; PULSE 101; TEMP 97.7; O2SAT 98
--- NOTE | 2018-09-02 16:45 | ECG ---
Date Performed: 09/01/2018 Time Performed: 10:42:23 PTAGE: 73 years EKG: ATRIAL FIBRILLATION WITH RAPID VENTRICULAR RESPONSE BORDERLINE LEFT AXIS DEVIATION NONSPECI FIC ST & T-WAVE ABNORMALITY ABNORMAL RHYTHM ECG PREVIOUS TRACING : 11/23/2013 22.54 Since the previous tracing, no significant change noted DOCTOR: Derrell Ramirez Interpretating Date/Time 09/02/2018 16:42:54
--- NOTE | 2018-09-03 19:04 | P.DS ---
DS: Providers Date of admission: 09/01/18 12:22 DATE OF SERVICE 09/02/18 DATE OF DISCHARGE 09/02/18 Primary care physician: Bk Villasenor DO Consults: 09/01/18 13:02 Consult to Gastroenterology Routine Consulting Provider: Reginaldo Duran Reason for Consultation: Upper GI bleed, pt with black stools Notified:: Office Spoke with:: FABY Date Notified:: 09/01/18 Time Notified:: 13:08 Ordering Provider: GRACIA Brief History from admission: This patient is a 73-year-old male with a diagnosis of hypertension, atrial fibrillation on Coumadin, history of gastric bypass surgery as per the patient. The patient was seen by his primary care doctor a few days ago and was found to have an elevated INR of 5.4 this past . He was told to skip 2 days of Coumadin however over the weekend the patient began to have black stools. He said his stools have continued over the past 3 days and this is why he came into the emergency department today. The patient denies any abdominal pain, no fevers or chills, no vomiting. He does not have any other complaints today. Past medical history hypertension, atrial fibrillation on Coumadin Past surgical history patient says he got a piece of metal removed from his left side of his leg, gastric bypass. Family history none as per the patient Social history the patient denies any history of tobacco smoking, he says he drinks approximately 2 drinks of vodka per day that has been ongoing for nearly 20 years. Denies any history of substance abuse. DS: Diagnosis Discharge Diagnosis (1) Upper gastrointestinal hemorrhage: Status: Acute (2) Coagulopathy: Status: Acute DS: Summary Patient was admitted and seen by gastroenterology and taken for endoscopy. Finding included several small whte based ulcers w surrounding edema/erythema in prepyloric area and edematous engorged erythematous area was seen with a central 3 mm white based ulcer without stigmata of recent bleeding seen. Biopsy of the area was obtained. Retroflex in the stomach revealed fullness in the cardia consistent with his history of a lap band being in place that has moved proximally. Small areas of erythema were seen consistent with a mild duodenitis in the bulb. No ulcers or erosions were seen. The second portion was normal. GI recommended high fiber diet, avoidance of nsaids and anticoagulants, ppi, and follow up in 4-6 wks for possible repeat endoscopy. Patient was advanced and tolerated diet, no further melena and no bleeding noted , clinically stable for discharge home and outpatient followup. AFIB RVR ACUTE UGI BLEED due to PUD PUD and DUODENITIS HTN CAD OBESITY BMI 38 s/p lap band HYPOTHYROIDISM Time Spent with Patient Total time spent providing and/or coordinating discharge services: Greater than 30 minutes Status at Discharge Functional status at discharge: independent ambulation Overall status at discharge: patient is progressing back to baseline Quality: VTE Deep Vein Thrombosis/Pulmonary Embolism Present on Admission: No Exam Narrative Exam Narrative: aaox3 nad heart s1s2 reg lungs clear no wrr abd soft nondt pos bs obese ext no edema no calf tenderness Results Completed studies during hospitalization: Pending at discharge 09/02/18 12:47 Surgical [PTH] Routine Discharge Plan Discharge Disposition Patient Disposition: Discharge Home Discharge Condition Condition: Stable Discharge Order Discharge Orders: Discharge Order (Routine); Ordered 09/02/18 Ordered By: Nereida Hopkins Discharge Details Discharge Comment: ok to dc home if tolerating diet Physicians Team Primary Care Provider: Bk Villasenor Attending Provider: Nereida Hopkins Other Providers: Reginaldo Duran Rxs /Orders / Referrals /Forms Prescriptions: New pantoprazole [Protonix] 40 mg tablet,delayed release (DR/EC) 40 mg PO Q12H 56 Days Qty: 60 RF: 0 Continue carvedilol [Coreg] 25 mg Tablet 25 mg PO BID RF: 0 atorvastatin 20 mg Tablet 20 mg PO QPM RF: 0 levothyroxine 50 mcg Tablet 50 mcg PO DAILY RF: 0 digoxin [Lanoxin] 125 mcg Tablet 0.125 mg PO DAILY RF: 0 hydrochlorothiazide 12.5 mg Tablet 12.5 mg PO QAM RF: 0 Discontinued warfarin [Coumadin] 3 mg Tablet 3 mg PO QNOON RF: 0 Referrals: Reginaldo Duran MD [Physician] - See Instructions ( Please call the physician's office to book the appointment to be seen within [[phone]].) Bk Villasenor DO [Primary Care Provider] - See Instructions Discharge Instructions Patient Printed Instructions: Pantoprazole (By mouth), Gastrointestinal Bleeding (DC) Status ED Status: Left Department Discharge Information Discharge Date/Time: 09/02/18 15:58
== END 2018-09-02 15:58 | disposition home or self-care (01) ==
LOC: NEPC 09:45 → NEDA 12:22 → NEPFCDU 17:27
PROVIDERS: ADMIT Internal Medicine; ATTEND Internal Medicine
PROC: PANENDO (2018-09-02 10:15)
DX: I48.91 Unspecified atrial fibrillation; K29.50 Unspecified chronic gastritis without bleeding; Z68.38 Body mass index [BMI] 38.0-38.9, adult; K27.4 Chronic or unspecified peptic ulcer, site unspecified, with hemorrhage; E03.9 Hypothyroidism, unspecified; Z98.84 Bariatric surgery status; D64.9 Anemia, unspecified; I10 Essential (primary) hypertension; E66.9 Obesity, unspecified; Z79.01 Long term (current) use of anticoagulants; Z79.899 Other long term (current) drug therapy; I25.10 Atherosclerotic heart disease of native coronary artery without angina pectoris; K29.80 Duodenitis without bleeding